=== PATIENT | female | born 1995 | race Caucasian/White ===

== ENCOUNTER 2018-10-09 13:40 | Emergency (ER) | payer BC ==
[2018-10-09 13:57] VITALS: BP 138/77
[2018-10-09] MEDS ORDERED: Ibuprofen ADULT LIQ* 600 MG/30 ML UDC PO ONE (14:17)
--- NOTE | 2018-10-09 14:22 | UC ---
UC General HPI - HPI Summary HPI Summary: pt c/o pain near 3rd toe of L foot with an weight baring x 2 day. no hx injury but did wearing boots with a heel during prolonged walking the week before. unable to walk without limping. no fever or rash. - History of Current Complaint Chief Complaint: UCLowerExtremity Stated Complaint: LEFT FOOT TOE PAIN Time Seen by Provider: 10/09/18 13:51 Hx Obtained From: Patient Hx Last Menstrual Period: "The beginning of September..." Onset/Duration: Gradual Onset Pain Intensity: 0 Associated Signs & Symptoms: Negative: Fever - Allergy/Home Medications Allergies/Adverse Reactions: Allergies Allergy/AdvReac Type Severity Reaction Status Date / Time No Known Allergies Allergy Verified 10/09/18 13:54 Home Medications: Home Medications Etonogest/Eth.estradiol (Nf) [Nuvaring Vaginal Ring] 1 each VAGINAL .SEE COMMENTS 10/09/18 [History Confirmed 10/09/18] PMH/Surg Hx/FS Hx/Imm Hx Previously Healthy: Yes - Surgical History Surgical History: Yes Surgery Procedure, Year, and Place: Right Breast Biopsies - Family History Known Family History: Positive: Non-Contributory - Social History Occupation: Employed Full-time Alcohol Use: Occasionally Substance Use Type: None Smoking Status (MU): Never Smoked Tobacco - Immunization History Vaccination Up to Date: Yes Review of Systems All Other Systems Reviewed And Are Negative: Yes Constitutional: Positive: Negative Skin: Positive: Negative Eyes: Positive: Negative ENT: Positive: Negative Respiratory: Positive: Negative Cardiovascular: Positive: Negative Gastrointestinal: Positive: Negative Genitourinary: Positive: Negative Motor: Positive: Negative Neurovascular: Positive: Negative Musculoskeletal: Positive: Negative Neurological: Positive: Negative Psychological: Positive: Negative Is Patient Immunocompromised?: No Physical Exam Triage Information Reviewed: Yes Appearance: Well-Appearing Vital Signs: Initial Vital Signs Temp 98.7 F 10/09/18 13:53 Pulse 104 10/09/18 13:53 Resp 14 10/09/18 13:53 BP 138/77 10/09/18 13:53 Pulse Ox 98 10/09/18 13:53 Vital Signs Reviewed: Yes Eyes: Positive: Conjunctiva Clear ENT: Positive: Normal ENT inspection Neck: Positive: Supple, Nontender, No Lymphadenopathy Respiratory: Positive: Lungs clear, Normal breath sounds Cardiovascular: Positive: RRR, No Murmur Abdomen Description: Positive: Nontender, No Organomegaly, Soft Bowel Sounds: Positive: Present Musculoskeletal: Positive: Other: - L foot: no gross deformity, swelling or discoloration. Very tender to palpation between base of 2nd/3rd toes. Arch non tender. Squeezing forefoot does not reproduce the pain. weight and pushing off the forefoot is painful. Foot has gross s/v/m function. Limping gait. Neurological: Positive: Alert Psychological: Positive: Age Appropriate Behavior Skin Exam: Normal Diagnostics - Radiology No standard instances Radiology Interpretation Completed By: Radiologist - L Foot=IMPRESSION: NO ACUTE OSSEOUS INJURY. IF SYMPTOMS PERSIST, RECOMMEND REPEAT IMAGING. Course/Dx - Course Course Of Treatment: no concern for infection of gout. xray=NAD. mortons nuroma or strain/sprain to forefoot is possible. wiill suggest otc foot support /shoe insert with post op shoe and podiatry follow up. - Differential Dx - Multi-Symptom Provider Diagnoses: ACUTE PAIN LEFT FOREFOOT Discharge - Sign-Out/Discharge Documenting (check all that apply): Patient Departure All imaging exams completed and their final reports reviewed: Yes - Discharge Plan Condition: Stable Disposition: HOME Patient Education Materials: Metatarsalgia (DC), Louise Neuroma (ED) Forms: *Gen. Provider Communication Referrals: Carolyn Rodriguez DPM [Doctor of Podiatric Medicine] - As Soon As Possible Additional Instructions: DIAGNOSIS: ACUTE PAIN LEFT FOREFOOT WEAR POST OP SHOE FOR COMFORT. CONSIDER AN OVER THE COUNTER SHOE INSERT TO SUPPORT ARCH AND CUSHION FOREFOOT. - Billing Disposition and Condition Condition: STABLE Disposition: Home
== END 2018-10-09 14:50 | disposition home or self-care (01) ==
LOC: UCCORT 13:40
DX: M79.672 Pain in left foot (principal)
CPT/HCPCS: 99213; A9270-GY; G0463